=== PATIENT | male | born 1965 | race Caucasian/White ===

== ENCOUNTER 2019-11-02 10:09 | Day surgery (SDC) | payer BC, OTHER ==
[2019-10-31 13:12] VITALS: BMI 25.8
[2019-11-02] MEDS ORDERED: BUPIVACAINE HCL 0.25% 125 MG/50 ML VIAL ONE (12:14)
[2019-11-02] MEDS ORDERED: LIDOCAINE HCL 2% (20ML MULTI-DOSE VIAL) ONE (12:14)
[2019-11-02] MEDS ORDERED: MIDAZOLAM HCL 2 MG/2 ML SINGLE DOSE VIAL ONE (12:18)
[2019-11-02] MEDS ORDERED: PROPOFOL 20 ML ONE ×2 (12:28)
[2019-11-02] MEDS ORDERED: DEXAMETHASONE SOD PHOSPHATE 4 MG/1 ML VIAL ONE (12:33)
[2019-11-02] MEDS ORDERED: ceFAZolin SODIUM 1 GM VIAL ONE (12:33)
[2019-11-02] MEDS ORDERED: ONDANSETRON 4 MG/2 ML VIAL ONE (12:33)
[2019-11-02] MEDS ORDERED: PROMETHAZINE HCL 25 MG/1 ML VIAL IVPUSH PRN (14:24)
[2019-11-02] MEDS ORDERED: oxyCODONE HCL 5 MG TABLET PO PRN ×2 (14:24)
[2019-11-02] MEDS ORDERED: ONDANSETRON 4 MG/2 ML VIAL IVPUSH PRN (14:24)
[2019-11-02 15:00] VITALS: TEMP 97.9
[2019-11-02 15:21] VITALS: BP 118/72; PULSE 66
--- NOTE | 2019-11-03 14:02 | OP ---
DATE OF OPERATION: 11/02/2019 PREOPERATIVE DIAGNOSIS: Right thumb metacarpophalangeal joint ulnar collateral ligament complete tear. POSTOPERATIVE DIAGNOSIS: Right thumb metacarpophalangeal joint ulnar collateral ligament complete tear. OPERATIVE PROCEDURE: Repair of right thumb ulnar collateral ligament. SURGEON: Andi Pritchard MD SURFBOARD MAKER: LAQUITA Bansal ANESTHESIA: General. COMPLICATIONS: None. ESTIMATED BLOOD LOSS: Minimal. INDICATIONS FOR PROCEDURE: The patient is a 54-year-old male with the above finding indicated for operative treatment. Risks, benefits, and alternatives were discussed with patient at length. Proper informed consent was obtained. PROCEDURE: After proper identification of patient and correct operative site, patient brought in the operating room and placed supine on the operating room table with all prominences well padded. General anesthesia was given. Right upper extremity was prepped and draped in usual sterile fashion. A well-padded tourniquet was placed with a sterile prep. Esmarch bandage used to exsanguinate right upper extremity. Tourniquet was inflated to 250 mmHg. A curvilinear incision was made over the thumb ulnar collateral ligament at the metacarpophalangeal joint. Incision was taken through skin with blunt and sharp dissection through subcutaneous tissues, taking care to protect the radial sensory nerve branch in the area. A Stener lesion was noted with a complete rupture of the thumb UCL off of the proximal phalanx and superficial to adductor aponeurosis. The adductor aponeurosis was divided and elevated off the ulnar collateral ligament and the ulnar aspect of the joint. Ulnar collateral ligament was teased out into a position that it could be repaired and there was adequate tissue for repair. An Arthrex SwiveLock anchor was then placed into the base of the thumb ulnar collateral ligament with a 2-0 FiberWire suture. This was used to repair the collateral ligament into the anchor. A FiberTape suture was also loaded onto the anchor and used to augment the repair with an [id number] of repair. This was accomplished by placing a second anchor, securing the FiberTape over the collateral ligament at the metacarpal neck. This provided a secure, stable repair of the ulnar collateral ligament with the augmentation and near-full range of motion of the thumb was achieved with no instability. The wound was irrigated and repaired in layers, including the adductor aponeurosis using 4-0 Vicryl and 4-0 Monocryl suture. Steri-Strips and sterile dressings were placed. A splint was placed. Patient was reversed from anesthesia and brought to recovery room in stable condition. He tolerated procedure well. Aj Quesada, the construction project assistant, was integral throughout the procedure. Procedure could not have been performed without a skilled operative construction project assistant. ANDI PRITCHARD M.D. ALESHIA/[id number]
== END 2019-11-02 15:26 | disposition home or self-care (01) ==
LOC: FASU 10:09
PROVIDERS: ATTEND Orthopaedic Surgery Hand Surgery
PROC: 0MQ70ZZ Repair Right Hand Bursa and Ligament, Open Approach (ICD-10-PCS; principal; 2019-11-02 12:41)
DX: S63.641A Sprain of metacarpophalangeal joint of right thumb, initial encounter (principal); X58.XXXA Exposure to other specified factors, initial encounter; Y93.9 Activity, unspecified; Y92.9 Unspecified place or not applicable
CPT/HCPCS: 94760